=== PATIENT | female | born 1970 | race Caucasian/White ===

== ENCOUNTER 2017-06-28 08:40 | Emergency (ER) | payer MEDICARE, MEDICAID ==
[~2017-06-28] VITALS: Ht 160 cm; Wt 59.1 kg
[~2017-06-28 08:40] MED LIST: /HYDR10T PO; /TIZA4TA PO; AMBI10TA PO; AMIT50TA4 PO; CEFT500T3 PO; CELE40TA OR; CLON1TAB PO; CRAN250C2 PO; CYMB60CA3 PO; ESTR625TA PO; HYDR1SOL PO; HYDR50CA2 PO; HYDRO50TAB PO; KLON1TAB OR; KLON1TAB PO; KLON2TAB PO; LORTTAB8 PO; LYRI150C PO; MAGN30TA2 PO; MAXA10TA14 PO; MINI1CAP PO; MULTCAP PO; OMEP40CA2 PO; OXYC5TAB2 PO; PERC5TAB12 PO; PERCOCET PO; PRAZ5CAP PO; PRIL20TA2 PO; PRO BIOTIC PO; SOY PO; TRAM50TA2 OR; TRAZ50TA2 PO; Trazadone PO; VITA100067 PO; VYVA20CA PO; VYVA70CA3 PO; WELL100T2 OR; WELLTAB38 PO; ZANA2CAP PO; ZOLO50TA PO; [UNRECOGNIZED DRUG - CODE] PO
[2017-06-28 08:51] VITALS: BP 111/61
[2017-06-28] MEDS ORDERED: CRAN500C2 PO (09:02)
[2017-06-28] MEDS ORDERED: CITRTAB19 PO (09:02)
[2017-06-28] MEDS ORDERED: VITA500T3 PO (09:02)
[2017-06-28] MEDS ORDERED: VALI10TA PO (09:02)
[2017-06-28] MEDS ORDERED: COCO1000 PO (09:02)
[2017-06-28] MEDS ORDERED: MULT1TAB10 PO (09:02)
[2017-06-28] MEDS ORDERED: ZOFR4TAB3 PO (09:49)
[2017-06-28] MEDS ORDERED: AUGM875T28 PO (09:49)
[2017-06-28] MEDS ORDERED: MUCI600T37 PO (09:49)
[2017-06-28] MEDS ORDERED: CLAR1TAB2 PO (09:49)
[2017-06-28] MEDS: METOCLOPRAMIDE 10 MG TAB PO ONE (09:50)
[2017-06-28] MEDS: ONDANSETRON 4 MG ORAL DISINTEGRATING TAB (S0181) PO ONE (09:50)
[2017-06-28] MEDS: ACETAMINOPHEN 325 MG TAB PO ONE (09:50)
== END 2017-06-28 09:57 | disposition home or self-care (01) ==
LOC: M ED 08:40
DX: J01.90 Acute sinusitis, unspecified (principal); R11.2 Nausea with vomiting, unspecified; Z87.891 Personal history of nicotine dependence

== ENCOUNTER 2017-12-03 15:11 | Emergency (ER) | payer MEDICARE, MEDICAID | END 2017-12-03 17:22 | disposition home or self-care (01) | LOC: M ED 15:11 | DX: J32.9 Chronic sinusitis, unspecified (principal); J40 Bronchitis, not specified as acute or chronic; F90.9 Attention-deficit hyperactivity disorder, unspecified type; F41.9 Anxiety disorder, unspecified; G43.909 Migraine, unspecified, not intractable, without status migrainosus; Z98.84 Bariatric surgery status | CPT/HCPCS: 99283 ==

== ENCOUNTER 2018-06-28 15:58 | Inpatient (IN) | payer MEDICARE, OTHER, MEDICAID ==
[2018-06-28 17:55] LABS: KETONE, URINE AUTO RFX NEGATIVE (NEGATIVE); MUCUS, URINE RFX SMALL (NEGATIVE); NITRITE, URINE AUTO RFX NEGATIVE (NEGATIVE); RBC, URINE AUTO RFX 1 /HPF (0-3); SPECIFIC GRAVITY UR AUTO RFX 1.029 (1.002-1.035); SQUAM EPITHELIAL CELL UR AURFX 1 /HPF (0-6); WBC, URINE AUTO RFX 3 /HPF (0-3)
[2018-06-28] MEDS: NS 1,000 ML IV ×2 (18:06→22:12)
[2018-06-28] MEDS: ONDANSETRON 4MG/2ML VIAL (J2405) IV (18:06)
[2018-06-28] MEDS: PANTOPRAZOLE 40MG INJ (PROTONIX) (C9113) IV (18:07)
[2018-06-28 18:13] LABS: BASO % 0.5 % (0.0-1.0); EOS # 0.1 10^3/uL (0.0-0.50); EOS % 1.4 % (0.0-3.0); HEMATOCRIT 26.6 % (36.0-47.0); HEMOGLOBIN 8.7 g/dl (12.0-15.5); IMMATURE GRANULOCYTE % 0.4 % (0-3.0); LYMPH # 2.2 10^3/uL (1.5-4.5); LYMPH % 38.8 % (24.0-44.0); MEAN CORPUSCULAR HEMOGLOBIN 27.2 pg (27.0-33.0); MEAN CORPUSCULAR HGB CONC 32.7 g/dl (32.0-36.5); MEAN CORPUSCULAR VOLUME 83.1 fl (80.0-96.0); MONO # 0.4 10^3/uL (0.0-0.8); MONO % 6.5 % (0.0-5.0); NEUTROPHILS # 2.9 10^3/uL (1.8-7.7); NEUTROPHILS % 52.4 % (36.0-66.0); PLATELET COUNT, AUTOMATED 182 10^3/uL (150-450); RED CELL DISTRIBUTION WIDTH 14.1 % (11.5-14.5); WHITE BLOOD COUNT 5.6 10^3/uL (4.0-10.0)
[2018-06-28 18:29] LABS: INR 1.08; PROTHROMBIN TIME 14.1 SECONDS (12.1-14.4)
[2018-06-28 18:30] LABS: PARTIAL THROMBOPLASTIN TIME 27.3 SECONDS (25.4-37.6)
[2018-06-28 18:39] LABS: ALBUMIN 3.3 GM/DL (3.2-5.2); ALBUMIN/GLOBULIN RATIO 1.22 (1.00-1.93); ALKALINE PHOSPHATASE 50 U/L (45-117); ALT/SGPT 24 U/L (12-78); ANION GAP 6 MEQ/L (8-16); AST/SGOT 15 U/L (7-37); BILIRUBIN,DIRECT < 0.1 MG/DL (0.0-0.2); BILIRUBIN,TOTAL 0.2 MG/DL (0.2-1.0); BLOOD UREA NITROGEN 16 MG/DL (7-18); CALCIUM LEVEL 8.2 MG/DL (8.5-10.1); CARBON DIOXIDE LEVEL 29 MEQ/L (21-32); CHLORIDE LEVEL 107 MEQ/L (98-107); CREATININE FOR GFR 0.91 MG/DL (0.55-1.30); GLOMERULAR FILTRATION RATE > 60.0 (>58); GLUCOSE, FASTING 81 MG/DL (70-100); LIPASE 88 U/L (73-393); SODIUM LEVEL 142 MEQ/L (136-145)
[2018-06-28 18:41] LABS: LACTIC ACID SEPSIS PROTOCOL 0.6 MMOL/L (0.4-2.0)
[2018-06-28 18:41] LABS: LEUKOCYTE ESTERASE UR AUTO RFX TRACE (NEGATIVE)
[2018-06-28] MEDS ORDERED: ISOVUE-370 76% 100ML VIAL (Q9967) As Ordered (18:56)
[2018-06-28] MEDS ORDERED: FLUTICASONE PROP 0.05% NASAL SPRAY 16 GM (FLONASE) (21:00)
[2018-06-28] MEDS ORDERED: diazePAM 10 MG TAB PO (21:00)
[2018-06-28] MEDS ORDERED: ONDANSETRON 4MG/2ML VIAL (J2405) IV (21:00)
[2018-06-28] MEDS ORDERED: LORATADINE 10 MG TAB PO (21:00)
[2018-06-28] MEDS: PRAZOSIN 1 MG CAP PO (21:00)
[2018-06-28] MEDS ORDERED: IPRATROPIUM 0.5MG/ALBUTEROL 2.5MG INH SOL UD 3ML (DUONEB)(J7620) NEB (21:15)
[2018-06-29 06:59] LABS: HEMATOCRIT 24.2 % (36.0-47.0); HEMOGLOBIN 7.6 g/dl (12.0-15.5); MEAN CORPUSCULAR HEMOGLOBIN 26.8 pg (27.0-33.0); MEAN CORPUSCULAR HGB CONC 31.4 g/dl (32.0-36.5); MEAN CORPUSCULAR VOLUME 85.2 fl (80.0-96.0); PLATELET COUNT, AUTOMATED 135 10^3/uL (150-450); RED BLOOD COUNT 2.84 10^6/uL (4.00-5.40); RED CELL DISTRIBUTION WIDTH 14.3 % (11.5-14.5); WHITE BLOOD COUNT 3.4 10^3/uL (4.0-10.0)
[2018-06-29 07:14] LABS: ANION GAP 5 MEQ/L (8-16); BLOOD UREA NITROGEN 10 MG/DL (7-18); CARBON DIOXIDE LEVEL 29 MEQ/L (21-32); CHLORIDE LEVEL 112 MEQ/L (98-107); CREATININE FOR GFR 0.78 MG/DL (0.55-1.30); GLOMERULAR FILTRATION RATE > 60.0 (>58); GLUCOSE, FASTING 78 MG/DL (70-100); POTASSIUM SERUM 3.8 MEQ/L (3.5-5.1); SODIUM LEVEL 146 MEQ/L (136-145)
[2018-06-29] MEDS ORDERED: VYVANSE 70 MG PO (09:00)
[2018-06-29] MEDS: INFLUENZA QUADRIVALENT PF VACCINE 0.5ML SYRINGE (90686) IM (09:13)
[2018-06-29] MEDS: PANTOPRAZOLE 40MG INJ (PROTONIX) (C9113) IV ×2 (09:13→20:56)
[2018-06-29] MEDS: SERTRALINE HCL 50 MG TAB PO (09:14)
[2018-06-29] MEDS: CYANOCOBALAMIN 500 MCG TAB PO (09:14)
[2018-06-29] MEDS: MULTIVITAMINS/MINERALS THERAP 1 TAB PO (09:14)
[2018-06-29] MEDS: buPROPion **XL** TABLET 150MG (WELLBUTRIN XL) PO (09:14)
[2018-06-29] MEDS: NS 1,000 ML IV ×3 (09:15→23:53)
[2018-06-29 10:31] LABS: FERRITIN 6 NG/ML (8-252); IRON (FE) 20 UG/DL (50-170); PERCENT SATURATION 6.3 % (13.2-45.0); TOTAL IRON BINDING CAPACITY 316 UG/DL (250-450)
[2018-06-29] MEDS: RIZATRIPTAN BENZOATE 10 MG TAB PO (10:47)
[2018-06-29 11:03] LABS: REASON FOR REVIEW RBC MORPHOLOGY; SLIDE REVIEW Report; SOURCE PERIPHERAL SMEAR
[2018-06-29 11:06] LABS: RETIC HEMOGLOBIN EQUIVALENT 31.3 pg (24-36); RETICULOCYTE # 58.9 10^9/L (17-77); RETICULOCYTE % 2.1 % (0.5-1.5)
[2018-06-29 11:24] LABS: IMMEDIATE SPIN CROSSMATCH 1 2
[2018-06-29 17:17] LABS: HEMOGLOBIN 10.6 g/dl (12.0-15.5)
[2018-06-29] MEDS: PRAZOSIN 1 MG CAP PO (20:47)
[2018-06-29 22:07] LABS: HEMOGLOBIN 10.8 g/dl (12.0-15.5)
[2018-06-30 06:11] LABS: HEMATOCRIT 29.8 % (36.0-47.0); HEMOGLOBIN 9.8 g/dl (12.0-15.5); MEAN CORPUSCULAR HEMOGLOBIN 28.2 pg (27.0-33.0); MEAN CORPUSCULAR HGB CONC 32.9 g/dl (32.0-36.5); MEAN CORPUSCULAR VOLUME 85.9 fl (80.0-96.0); PLATELET COUNT, AUTOMATED 124 10^3/uL (150-450); RED BLOOD COUNT 3.47 10^6/uL (4.00-5.40); RED CELL DISTRIBUTION WIDTH 14.3 % (11.5-14.5)
[2018-06-30 06:32] LABS: ANION GAP 6 MEQ/L (8-16); BLOOD UREA NITROGEN 5 MG/DL (7-18); CARBON DIOXIDE LEVEL 27 MEQ/L (21-32); CHLORIDE LEVEL 115 MEQ/L (98-107); CREATININE FOR GFR 0.79 MG/DL (0.55-1.30); GLOMERULAR FILTRATION RATE > 60.0 (>58); GLUCOSE, FASTING 86 MG/DL (70-100); POTASSIUM SERUM 3.7 MEQ/L (3.5-5.1); SODIUM LEVEL 148 MEQ/L (136-145)
[2018-06-30] MEDS: CYANOCOBALAMIN 500 MCG TAB PO (09:00)
[2018-06-30] MEDS: MULTIVITAMINS/MINERALS THERAP 1 TAB PO (09:00)
[2018-06-30] MEDS: buPROPion **XL** TABLET 150MG (WELLBUTRIN XL) PO (09:44)
[2018-06-30] MEDS: PANTOPRAZOLE 40MG INJ (PROTONIX) (C9113) IV ×2 (09:44→20:16)
[2018-06-30] MEDS: SERTRALINE HCL 50 MG TAB PO (09:44)
[2018-06-30] MEDS ORDERED: PROPOFOL 200 MG/20 ML VIAL As Ordered ×2 (13:02→13:39)
[2018-06-30] MEDS ORDERED: LIDOCAINE 2% INJ 100 MG/5 ML SDV (FOR ANES.) As Ordered (13:04)
[2018-06-30] MEDS ORDERED: GLYCOPYRROLATE INJ 0.2 MG/ML 2 ML VIAL As Ordered (13:51)
[2018-06-30] MEDS: SUCRALFATE 1 GM TAB PO ×2 (17:06→20:15)
[2018-07-01] MEDS: SODIUM CHLORIDE 0.9% 1000ML IV (02:20)
[2018-07-01] MEDS: RIZATRIPTAN BENZOATE 10 MG TAB PO (03:00)
[2018-07-01] MEDS: ACETAMINOPHEN TAB 650MG DOSE (2X325MG) PO (05:34)
[2018-07-01 06:00] LABS: HEMATOCRIT 32.1 % (36.0-47.0); HEMOGLOBIN 10.5 g/dl (12.0-15.5); MEAN CORPUSCULAR HEMOGLOBIN 27.6 pg (27.0-33.0); MEAN CORPUSCULAR HGB CONC 32.7 g/dl (32.0-36.5); MEAN CORPUSCULAR VOLUME 84.5 fl (80.0-96.0); PLATELET COUNT, AUTOMATED 140 10^3/uL (150-450); RED CELL DISTRIBUTION WIDTH 14.1 % (11.5-14.5); WHITE BLOOD COUNT 4.1 10^3/uL (4.0-10.0)
[2018-07-01 06:29] LABS: ANION GAP 6 MEQ/L (8-16); BLOOD UREA NITROGEN 4 MG/DL (7-18); CALCIUM LEVEL 8.3 MG/DL (8.5-10.1); CARBON DIOXIDE LEVEL 28 MEQ/L (21-32); CHLORIDE LEVEL 114 MEQ/L (98-107); CREATININE FOR GFR 0.79 MG/DL (0.55-1.30); GLOMERULAR FILTRATION RATE > 60.0 (>58); GLUCOSE, FASTING 85 MG/DL (70-100); POTASSIUM SERUM 3.7 MEQ/L (3.5-5.1); SODIUM LEVEL 148 MEQ/L (136-145)
[2018-07-01] MEDS: CYANOCOBALAMIN 500 MCG TAB PO (08:15)
[2018-07-01] MEDS: MULTIVITAMINS/MINERALS THERAP 1 TAB PO (08:15)
[2018-07-01] MEDS: PANTOPRAZOLE 40MG INJ (PROTONIX) (C9113) IV ×2 (08:15→20:25)
[2018-07-01] MEDS: SERTRALINE HCL 50 MG TAB PO (08:15)
[2018-07-01] MEDS: buPROPion **XL** TABLET 150MG (WELLBUTRIN XL) PO (08:15)
[2018-07-01] MEDS: SUCRALFATE 1 GM TAB PO ×4 (08:16→20:25)
[2018-07-01 11:07] LABS: T UPTAKE 35 % (30-39); THYROXINE (T4) 5.7 UG/DL (4.5-12.0)
[2018-07-01] MEDS: NS 1,000 ML IV ×2 (13:53)
[2018-07-02 06:00] LABS: HEMATOCRIT 30.3 % (36.0-47.0); HEMOGLOBIN 9.8 g/dl (12.0-15.5); MEAN CORPUSCULAR HEMOGLOBIN 27.5 pg (27.0-33.0); MEAN CORPUSCULAR HGB CONC 32.3 g/dl (32.0-36.5); MEAN CORPUSCULAR VOLUME 84.9 fl (80.0-96.0); PLATELET COUNT, AUTOMATED 145 10^3/uL (150-450); RED BLOOD COUNT 3.57 10^6/uL (4.00-5.40); RED CELL DISTRIBUTION WIDTH 14.2 % (11.5-14.5); WHITE BLOOD COUNT 4.6 10^3/uL (4.0-10.0)
[2018-07-02 06:24] LABS: ANION GAP 7 MEQ/L (8-16); BLOOD UREA NITROGEN 4 MG/DL (7-18); CALCIUM LEVEL 7.5 MG/DL (8.5-10.1); CARBON DIOXIDE LEVEL 27 MEQ/L (21-32); CHLORIDE LEVEL 111 MEQ/L (98-107); CREATININE FOR GFR 0.77 MG/DL (0.55-1.30); GLOMERULAR FILTRATION RATE > 60.0 (>58); GLUCOSE, FASTING 89 MG/DL (70-100); POTASSIUM SERUM 3.4 MEQ/L (3.5-5.1); SODIUM LEVEL 145 MEQ/L (136-145)
[2018-07-02] MEDS: MULTIVITAMINS/MINERALS THERAP 1 TAB PO (09:12)
[2018-07-02] MEDS: POTASSIUM CHLORIDE 10 MEQ SR TABLET PO (09:12)
[2018-07-02] MEDS: PANTOPRAZOLE 40MG INJ (PROTONIX) (C9113) IV ×2 (09:12→20:10)
[2018-07-02] MEDS: CYANOCOBALAMIN 500 MCG TAB PO (09:13)
[2018-07-02] MEDS: SUCRALFATE 1 GM TAB PO ×4 (09:13→20:10)
[2018-07-02] MEDS: MIDODRINE 5 MG TAB PO ×3 (09:13→16:51)
[2018-07-02] MEDS: SERTRALINE HCL 50 MG TAB PO (09:13)
[2018-07-02] MEDS: buPROPion **XL** TABLET 150MG (WELLBUTRIN XL) PO (09:13)
[2018-07-02 11:27] LABS: CORTISOL AM 14.9 UG/DL (4.3-22.4)
[2018-07-02] MEDS: RIZATRIPTAN BENZOATE 10 MG TAB PO (22:57)
[2018-07-03 00:09] LABS: Lyme Disease IgG/IgM Antibodie <0.91 ISR (0.00-0.90); Lyme Disease IgM Ab Quantitati <0.80 index (0.00-0.79)
[2018-07-03 05:32] LABS: HEMATOCRIT 33.9 % (36.0-47.0); HEMOGLOBIN 10.7 g/dl (12.0-15.5); MEAN CORPUSCULAR HEMOGLOBIN 27.2 pg (27.0-33.0); MEAN CORPUSCULAR HGB CONC 31.6 g/dl (32.0-36.5); MEAN CORPUSCULAR VOLUME 86.3 fl (80.0-96.0); PLATELET COUNT, AUTOMATED 165 10^3/uL (150-450); RED BLOOD COUNT 3.93 10^6/uL (4.00-5.40); RED CELL DISTRIBUTION WIDTH 14.5 % (11.5-14.5); WHITE BLOOD COUNT 5.7 10^3/uL (4.0-10.0)
[2018-07-03 05:56] LABS: ANION GAP 9 MEQ/L (8-16); BLOOD UREA NITROGEN 6 MG/DL (7-18); CALCIUM LEVEL 8.1 MG/DL (8.5-10.1); CARBON DIOXIDE LEVEL 27 MEQ/L (21-32); CHLORIDE LEVEL 109 MEQ/L (98-107); GLOMERULAR FILTRATION RATE > 60.0 (>58); GLUCOSE, FASTING 109 MG/DL (70-100); POTASSIUM SERUM 3.5 MEQ/L (3.5-5.1); SODIUM LEVEL 145 MEQ/L (136-145)
[2018-07-03] MEDS: ACETAMINOPHEN TAB 650MG DOSE (2X325MG) PO (05:56)
[2018-07-03] MEDS: MULTIVITAMINS/MINERALS THERAP 1 TAB PO (09:44)
[2018-07-03] MEDS: SERTRALINE HCL 50 MG TAB PO (09:44)
[2018-07-03] MEDS: buPROPion **XL** TABLET 150MG (WELLBUTRIN XL) PO (09:44)
[2018-07-03] MEDS: SUCRALFATE 1 GM TAB PO ×4 (09:44→20:26)
[2018-07-03] MEDS: CYANOCOBALAMIN 500 MCG TAB PO (09:45)
[2018-07-03] MEDS: PANTOPRAZOLE 40MG TAB (PROTONIX) PO (09:45)
[2018-07-03] MEDS: RIZATRIPTAN BENZOATE 10 MG TAB PO (20:27)
[2018-07-04 06:21] LABS: HEMATOCRIT 32.6 % (36.0-47.0); HEMOGLOBIN 10.6 g/dl (12.0-15.5); MEAN CORPUSCULAR HEMOGLOBIN 27.5 pg (27.0-33.0); MEAN CORPUSCULAR HGB CONC 32.5 g/dl (32.0-36.5); MEAN CORPUSCULAR VOLUME 84.7 fl (80.0-96.0); PLATELET COUNT, AUTOMATED 167 10^3/uL (150-450); RED BLOOD COUNT 3.85 10^6/uL (4.00-5.40); RED CELL DISTRIBUTION WIDTH 14.2 % (11.5-14.5); WHITE BLOOD COUNT 4.7 10^3/uL (4.0-10.0)
[2018-07-04 06:36] LABS: ANION GAP 7 MEQ/L (8-16); BLOOD UREA NITROGEN 7 MG/DL (7-18); CALCIUM LEVEL 8.5 MG/DL (8.5-10.1); CARBON DIOXIDE LEVEL 28 MEQ/L (21-32); CHLORIDE LEVEL 111 MEQ/L (98-107); CREATININE FOR GFR 0.79 MG/DL (0.55-1.30); GLOMERULAR FILTRATION RATE > 60.0 (>58); GLUCOSE, FASTING 87 MG/DL (70-100); POTASSIUM SERUM 3.4 MEQ/L (3.5-5.1); SODIUM LEVEL 146 MEQ/L (136-145)
[2018-07-04] MEDS: MULTIVITAMINS/MINERALS THERAP 1 TAB PO (08:28)
[2018-07-04] MEDS: SUCRALFATE 1 GM TAB PO ×4 (08:28→20:28)
[2018-07-04] MEDS: PANTOPRAZOLE 40MG TAB (PROTONIX) PO (08:28)
[2018-07-04] MEDS: buPROPion **XL** TABLET 150MG (WELLBUTRIN XL) PO (08:28)
[2018-07-04] MEDS: CYANOCOBALAMIN 500 MCG TAB PO (08:29)
[2018-07-04] MEDS: SERTRALINE HCL 50 MG TAB PO (08:29)
[2018-07-04] MEDS: ULTRACET TAB PO (08:30)
[2018-07-05 05:59] LABS: HEMATOCRIT 33.3 % (36.0-47.0); HEMOGLOBIN 10.7 g/dl (12.0-15.5); MEAN CORPUSCULAR HEMOGLOBIN 27.2 pg (27.0-33.0); MEAN CORPUSCULAR HGB CONC 32.1 g/dl (32.0-36.5); MEAN CORPUSCULAR VOLUME 84.7 fl (80.0-96.0); PLATELET COUNT, AUTOMATED 186 10^3/uL (150-450); RED BLOOD COUNT 3.93 10^6/uL (4.00-5.40); RED CELL DISTRIBUTION WIDTH 14.2 % (11.5-14.5)
[2018-07-05 06:23] LABS: ANION GAP 5 MEQ/L (8-16); BLOOD UREA NITROGEN 8 MG/DL (7-18); CALCIUM LEVEL 8.4 MG/DL (8.5-10.1); CARBON DIOXIDE LEVEL 29 MEQ/L (21-32); CHLORIDE LEVEL 111 MEQ/L (98-107); CREATININE FOR GFR 0.78 MG/DL (0.55-1.30); GLOMERULAR FILTRATION RATE > 60.0 (>58); GLUCOSE, FASTING 104 MG/DL (70-100); POTASSIUM SERUM 3.5 MEQ/L (3.5-5.1); SODIUM LEVEL 145 MEQ/L (136-145)
[2018-07-05] MEDS: SUCRALFATE 1 GM TAB PO (08:39)
[2018-07-05] MEDS: MULTIVITAMINS/MINERALS THERAP 1 TAB PO (10:34)
[2018-07-05] MEDS: SERTRALINE HCL 50 MG TAB PO (10:34)
[2018-07-05] MEDS: buPROPion **XL** TABLET 150MG (WELLBUTRIN XL) PO (10:34)
[2018-07-05] MEDS: PANTOPRAZOLE 40MG TAB (PROTONIX) PO (10:34)
[2018-07-05] MEDS: CYANOCOBALAMIN 500 MCG TAB PO (10:34)
== END 2018-07-05 12:43 | disposition home or self-care (01) | DRG 378 ==
LOC: M ED 15:58 → M ED INP 20:53 → M MSPAV 21:52
PROC: 0W3P8ZZ Control Bleeding in Gastrointestinal Tract, Via Natural or Artificial Opening Endoscopic (ICD-10-PCS; principal; 2018-06-30 13:30)
PROC: 30233N1 Transfusion of Nonautologous Red Blood Cells into Peripheral Vein, Percutaneous Approach (ICD-10-PCS; 2018-06-30 13:30)
DX: K28.0 Acute gastrojejunal ulcer with hemorrhage (principal); D62 Acute posthemorrhagic anemia; K21.9 Gastro-esophageal reflux disease without esophagitis; J45.909 Unspecified asthma, uncomplicated; F90.9 Attention-deficit hyperactivity disorder, unspecified type; G43.909 Migraine, unspecified, not intractable, without status migrainosus; F43.10 Post-traumatic stress disorder, unspecified; I95.1 Orthostatic hypotension; M54.5 Low back pain; Z79.899 Other long term (current) drug therapy; Z88.5 Allergy status to narcotic agent; Z88.8 Allergy status to other drugs, medicaments and biological substances; Z88.6 Allergy status to analgesic agent

== ENCOUNTER 2018-07-16 21:19 | Emergency (ER) | payer MEDICARE, OTHER ==
[2018-07-16] MEDS: KETOROLAC 30 MG/ML VIAL (J1885) IV (22:27)
[2018-07-16 22:29] LABS: BASO # 0.1 10^3/uL (0.0-0.2); BASO % 0.9 % (0.0-1.0); EOS # 0.1 10^3/uL (0.0-0.50); EOS % 2.4 % (0.0-3.0); HEMATOCRIT 38.1 % (36.0-47.0); HEMOGLOBIN 12.1 g/dl (12.0-15.5); IMMATURE GRANULOCYTE % 0.3 % (0-3.0); LYMPH # 2.1 10^3/uL (1.5-4.5); LYMPH % 36.2 % (24.0-44.0); MEAN CORPUSCULAR HEMOGLOBIN 27.2 pg (27.0-33.0); MEAN CORPUSCULAR HGB CONC 31.8 g/dl (32.0-36.5); MEAN CORPUSCULAR VOLUME 85.6 fl (80.0-96.0); MONO # 0.4 10^3/uL (0.0-0.8); MONO % 6.8 % (0.0-5.0); NEUTROPHILS # 3.1 10^3/uL (1.8-7.7); NEUTROPHILS % 53.4 % (36.0-66.0); PLATELET COUNT, AUTOMATED 237 10^3/uL (150-450); RED BLOOD COUNT 4.45 10^6/uL (4.00-5.40); RED CELL DISTRIBUTION WIDTH 13.5 % (11.5-14.5); WHITE BLOOD COUNT 5.9 10^3/uL (4.0-10.0)
[2018-07-16 22:32] LABS: INR 0.94; PROTHROMBIN TIME 12.7 SECONDS (12.1-14.4)
[2018-07-16 22:33] LABS: PARTIAL THROMBOPLASTIN TIME 28.3 SECONDS (25.4-37.6)
[2018-07-16 22:41] LABS: ANION GAP 7 MEQ/L (8-16); BLOOD UREA NITROGEN 13 MG/DL (7-18); CARBON DIOXIDE LEVEL 29 MEQ/L (21-32); CHLORIDE LEVEL 104 MEQ/L (98-107); CK-MB VALUE MASS < 1.0 NG/ML (<3.6); CPK CREATINE PHOSPHOKINASE 71 U/L (26-192); CREATININE FOR GFR 0.84 MG/DL (0.55-1.30); GLOMERULAR FILTRATION RATE > 60.0 (>58); GLUCOSE, FASTING 85 MG/DL (70-100); MB/CK RELATIVE INDEX 1.41 (< OR =4); SODIUM LEVEL 140 MEQ/L (136-145); TROPONIN I < 0.02 NG/ML (< 0.10)
[2018-07-16] MEDS ORDERED: ISOVUE-370 76% 100ML VIAL (Q9967) As Ordered (23:30)
[2018-07-17 01:52] LABS: CPK CREATINE PHOSPHOKINASE 65 U/L (26-192); MB/CK RELATIVE INDEX 1.54 (< OR =4); TROPONIN I < 0.02 NG/ML (< 0.10)
== END 2018-07-17 02:43 | disposition home or self-care (01) ==
LOC: M ED 07-17 02:43
DX: R07.89 Other chest pain (principal); R07.1 Chest pain on breathing; R00.1 Bradycardia, unspecified; K21.9 Gastro-esophageal reflux disease without esophagitis; J45.909 Unspecified asthma, uncomplicated; G43.909 Migraine, unspecified, not intractable, without status migrainosus; Z98.84 Bariatric surgery status; K28.9 Gastrojejunal ulcer, unspecified as acute or chronic, without hemorrhage or perforation; Z79.899 Other long term (current) drug therapy; Z88.5 Allergy status to narcotic agent; Z88.6 Allergy status to analgesic agent; Z88.8 Allergy status to other drugs, medicaments and biological substances
CPT/HCPCS: Q9967

== ENCOUNTER → 2018-09-17 | Outpatient (REF) | payer MEDICARE ==
[~2018-09-17] MED LIST changes: +AUGM875T28 PO; +BREO1INH INH; +CEFD1CAP8 PO; +CITRTAB19 PO; +CLAR1TAB2 PO; -CLON1TAB PO; +CLON1TAB8 PO; +COCO1000 PO; +CRAN500C2 PO; +FLON1SPR; +LORA10TA3 PO; +MISO200T56; +MUCI600T37 PO; +MULT1TAB10 PO; +PRED20TA PO; +PROP10TA56 PO; +SUCR1TA PO; +TRAM50TA2 PO; +VALI10TA PO; +VITA500T3 PO; +VITMTA PO; +ZOFR4TAB14 PO; +ZOLO50TA
[2018-09-17 18:26] LABS: BASO % 0.5 % (0.0-1.0); EOS # 0.1 10^3/uL (0.0-0.50); EOS % 1.3 % (0.0-3.0); HEMATOCRIT 37.2 % (36.0-47.0); HEMOGLOBIN 11.4 g/dl (12.0-15.5); LYMPH # 1.6 10^3/uL (1.5-4.5); MEAN CORPUSCULAR HGB CONC 30.6 g/dl (32.0-36.5); MEAN CORPUSCULAR VOLUME 81.6 fl (80.0-96.0); MONO # 0.5 10^3/uL (0.0-0.8); MONO % 5.2 % (0.0-5.0); NEUTROPHILS # 6.5 10^3/uL (1.8-7.7); NEUTROPHILS % 74.7 % (36.0-66.0); PLATELET COUNT, AUTOMATED 282 10^3/uL (150-450); RED BLOOD COUNT 4.56 10^6/uL (4.00-5.40); WHITE BLOOD COUNT 8.7 10^3/uL (4.0-10.0)
== END ==
LOC: M LAB REF 16:26
PROVIDERS: ATTEND Family Medicine Addiction Medicine
DX: D50.9 Iron deficiency anemia, unspecified (principal)